=== PATIENT | female | born 1965 | race Caucasian/White ===

== ENCOUNTER 2021-04-09 10:26 | Emergency (ER) | payer BC, MEDICARE, OTHER ==
[~2021-04-09] VITALS: Ht 162.5 cm; Wt 88.5 kg
[2021-04-09] MEDS ORDERED: NS IV 1000 ML 1,000 ML ONE (11:41)
[2021-04-09] MEDS ORDERED: ACETAMINOPHEN 500 MG TAB (TYLENOL) ONE (11:41)
[2021-04-09 11:47] LABS: BASOPHILS % (AUTO) 0 % (0-10); EOSINOPHILS # (AUTO) 0.1 10^3/uL (0.0-0.3); EOSINOPHILS % (AUTO) 2 % (0-10); HEMATOCRIT 47 % (35-52); HEMOGLOBIN 14.7 g/dL (11.5-16.0); LYMPHOCYTES % (AUTO) 15 % (12-44); MEAN CORPUSCULAR HEMOGLOBIN 29 pg (25-34); MEAN CORPUSCULAR HGB CONC 31 g/dL (32-36); MEAN CORPUSCULAR VOLUME 94 fL (80-99); MEAN PLATELET VOLUME 9.7 fL (9.0-12.2); MONOCYTES # (AUTO) 0.6 10^3/uL (0.0-1.0); MONOCYTES % (AUTO) 8 % (0-12); NEUTROPHILS # (AUTO) 5.2 10^3/uL (1.8-7.8); NEUTROPHILS % (AUTO) 75 % (42-75); PLATELET COUNT 278 10^3/uL (130-400); WHITE BLOOD COUNT 6.9 10^3/uL (4.3-11.0)
--- NOTE | 2021-04-09 11:58 | ED Cough/URI ---
General Chief Complaint: COVID19 Suspect/Confirmed Stated Complaint: FEVER,COUGH,SOB Nursing Triage Note: PT AMB TO [facility] 9 WITH COMPLAINT OF COUGH, SOA, SINUS DRAINAGE. STATES SYMPTOMS STARTED A WEEK AGO. STATES SYMPTOMS WORSENED 2 DAYS AGO. History of Present Illness Date Seen by Provider: Apr 09, 2021 Time Seen by Provider: 11:00 Initial Comments 55-year-old female presents for sinus congestion, productive cough with green to yellow sputum, fevers and shortness of air. She has been here visiting from [place] for the holidays. 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 She wears oxygen at 2 L per nasal cannula at night. She is not vaccinated for Covid or influenza, she has not had COVID previously. Her last test was approximately 6 months ago when she was negative. Other household members are sick with similar symptoms. She mainly complains of Sinus pressure and headache. She called her PCP and was recommended to send here, she has required SoluMedrol and Rocephin in the past. 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 She had Ibuprofen 600 mg this am. She left her Nebulizer machine in [place]. Timing/Duration: getting worse Severity/Quality: moderate, productive cough Associated Symptoms: cough, facial pain, fever/chills, muscle aches, nasal congestion, nasal drainage, shortness of breath, sinus infection, wheezing Allergies and Home Medications Allergies Coded Allergies: Penicillins (Verified Allergy, Unknown, 04/09/21) propoxyphene (Verified Allergy, Unknown, 04/09/21) Patient Home Medication List Home Medication List Reviewed: Yes Cefdinir (Cefdinir) 300 Mg Capsule, 300 MG PO BID Prescribed by: WAGNER SHULTZ on 04/09/211443 Fluconazole (Diflucan) 150 Mg Tablet, 150 MG PO ONCE Prescribed by: WAGNER SHULTZ on 04/09/21 144 Ondansetron (Ondansetron Odt) 4 Mg Tab.rapdis, 4 MG PO Q6H PRN for NAUSEA/VOMITING Prescribed by: WAGNER SHULTZ on 04/09/211443 Prednisone (Prednisone) 20 Mg Tab, 40 MG PO DAILY Prescribed by: WAGNER SHULTZ on 04/09/21 144 Review of Systems Review of Systems Constitutional: see HPI, chills, fever, malaise, weakness EENTM: see HPI, nose congestion Respiratory: see HPI, cough, dyspnea on exertion, phlegm, short of breath Cardiovascular: no symptoms reported, see HPI Gastrointestinal: no symptoms reported, see HPI Genitourinary: no symptoms reported, see HPI All Other Systems Reviewed Negative Unless Noted: Yes Past Cmjauld-Kgycdd-Qhwknq Hx Patient Social History Tobacco Use?: Yes Tobacco type used: Cigarettes Smoking Status: Current Everyday Smoker Use of E-Cig and/or Vaping dev: No Substance use?: No Additional substance use comme: DELTA 8 GUMMIES Alcohol Use?: No Pt feels they are or have been: No Immunizations Up To Date Influenza Vaccine Up-to-Date: No; Not Current Past Medical History Surgery/Hospitalization HX: COPD Cancer: Yes Esophageal (Blackmon's) Family Medical History Reviewed and Corrections made Physical Exam Vital Signs - First Documented 04/09/21 10:50 Temp 36.4 Pulse 107 Resp 20 B/P (MAP) 158/81 (106) Pulse Ox 93 O2 Delivery Room Air O2 Flow Rate 2.00 Capillary Refill : Less Than 3 Seconds Height: '" Weight: lbs. oz. kg; 33.00 BMI Method: General Appearance: mild distress HEENT: PERRL/EOMI, normal ENT inspection, TMs normal; No pharyngeal erythema, No tonsillar exudate; other (Thick postnasal drainage, frontal and maxillary sinus tenderness.) Neck: non-tender, full range of motion, supple, normal inspection Respiratory: chest non-tender, lungs clear, normal breath sounds Cardiovascular: normal peripheral pulses, regular rate, rhythm Gastrointestinal: normal bowel sounds, non tender, soft Extremities: normal range of motion, non-tender, normal inspection, normal capillary refill Neurologic/Psychiatric: no motor/sensory deficits, alert, normal mood/affect, oriented x 3 Skin: rash (to arms and legs, present 4-5 days. Thought she may have gotten flea bites while staying at her sons and she is allergic to fleas. 4-5 maculo- papular rash with mild puritus ) Progress/Results/Core Measures Suspected Sepsis SIRS Temperature: Pulse: 107 Respiratory Rate: 20 Laboratory Tests 04/09/21 11:40: White Blood Count 6.9 Blood Pressure 158 /81 Mean: 106 Laboratory Tests 04/09/21 11:40: Creatinine 0.72, INR Comment 0.9, Platelet Count 278, Total Bilirubin 0.2 Results/Orders Lab Results Laboratory Tests Test 04/09/21 10:55 04/09/21 11:30 04/09/21 11:40 Range/Units Influenza Type A Antigen POSITIVE H NEGATIVE Influenza Type B Antigen NEGATIVE NEGATIVE SARS-CoV-2 RNA (RT-PCR) Negative Negative Urine Color YELLOW Urine Clarity SL CLOUDY Urine pH 6.0 5-9 Urine Specific [place] >=1.030 1.016-1.022 Urine Protein 1+ H NEGATIVE Urine Glucose (UA) NEGATIVE NEGATIVE Urine Ketones NEGATIVE NEGATIVE Urine Nitrite NEGATIVE NEGATIVE Urine Bilirubin NEGATIVE NEGATIVE Urine Urobilinogen 0.2 < = 1.0 MG/DL Urine Leukocyte Esterase NEGATIVE NEGATIVE Urine RBC (Auto) 2+ H NEGATIVE Urine RBC 5-10 H /HPF Urine WBC NONE /HPF Urine Squamous Epithelial Cells 5-10 /HPF Urine Crystals NONE /LPF Urine Bacteria FEW H /HPF Urine Casts PRESENT /LPF Urine Hyaline Casts 0-2 H /LPF Urine Mucus MODERATE H /LPF Urine Culture Indicated YES White Blood Count 6.9 4.3-11.0 10^3/uL Red Blood Count 5.05 3.80-5.11 10^6/uL Hemoglobin 14.7 11.5-16.0 g/dL Hematocrit 47 35-52 % Mean Corpuscular Volume 94 80-99 fL Mean Corpuscular Hemoglobin 29 25-34 pg Mean Corpuscular Hemoglobin Concent 31 L 32-36 g/dL Red Cell Distribution Width 15.0 H 10.0-14.5 % Platelet Count 278 130-400 10^3/uL Mean Platelet Volume 9.7 9.0-12.2 fL Immature Granulocyte % (Auto) 0 % Neutrophils (%) (Auto) 75 42-75 % Lymphocytes (%) (Auto) 15 12-44 % Monocytes (%) (Auto) 8 0-12 % Eosinophils (%) (Auto) 2 0-10 % Basophils (%) (Auto) 0 0-10 % Neutrophils # (Auto) 5.2 1.8-7.8 10^3/uL Lymphocytes # (Auto) 1.0 1.0-4.0 10^3/uL Monocytes # (Auto) 0.6 0.0-1.0 10^3/uL Eosinophils # (Auto) 0.1 0.0-0.3 10^3/uL Basophils # (Auto) 0.0 0.0-0.1 10^3/uL Immature Granulocyte # (Auto) 0.0 0.0-0.1 10^3/uL Prothrombin Time 12.6 12.2-14.7 SEC INR Comment 0.9 0.8-1.4 Activated Partial Thromboplast Time 28 24-35 SEC D-Dimer 1.20 H 0.00-0.49 UG/ML Sodium Level 144 135-145 MMOL/L Potassium Level 3.5 L 3.6-5.0 MMOL/L Chloride Level 108 H 98-107 MMOL/L Carbon Dioxide Level 28 21-32 MMOL/L Anion Gap 8 5-14 MMOL/L Blood Urea Nitrogen 6 L 7-18 MG/DL Creatinine 0.72 0.60-1.30 MG/DL Estimat Glomerular Filtration Rate 83 BUN/Creatinine Ratio 8 Glucose Level 94 70-105 MG/DL Calcium Level 8.4 L 8.5-10.1 MG/DL Corrected Calcium 8.7 8.5-10.1 MG/DL Total Bilirubin 0.2 0.1-1.0 MG/DL Aspartate Amino Transf (AST/SGOT) 15 5-34 U/L Alanine Aminotransferase (ALT/SGPT) 15 0-55 U/L Alkaline Phosphatase 68 40-136 U/L Lactate Dehydrogenase 200 125-220 U/L C-Reactive Protein High Sensitivity 1.50 H 0.00-0.50 MG/DL Total Protein 7.0 6.4-8.2 GM/DL Albumin 3.6 3.2-4.5 GM/DL Procalcitonin 0.05 <0.10 NG/ML My Orders Orders - WAGNER SHULTZ Cbc With Automated Diff (04/09/21 11:13) Comprehensive Metabolic Panel (04/09/21 11:13) Fibrin Degradation Products (04/09/21 11:13) Procalcitonin (Pct) (04/09/21 11:13) Hs C Reactive Protein (04/09/21 11:13) LDH (04/09/21 11:13) Chest 1 View, Ap/Pa Only (04/09/21 11:13) Acetaminophen Tablet (Tylenol Tablet) (04/09/21 11:41) Ns Iv 1000 Ml (Sodium Chloride 0.9%) (04/09/21 11:41) Covid 19 Inhouse Test (04/09/21 11:51) Influenza A & B Antigens (04/09/21 11:51) Sputum Culture (04/09/21 11:51) Ua Culture If Indicated (04/09/21 12:03) Ceftriaxone 1 Gm Pre-Mix (Rocephin 1 Gm (04/09/21 12:45) Methylprednisolone Acetate Inj (Depo-Med (04/09/21 12:38) Protime With Inr (04/09/21 12:41) Partial Thromboplastin Time (04/09/21 12:41) Urine Culture (04/09/21 11:30) Ondansetron Injection (Zofran Injectio (04/09/21 12:48) Coronavirus Sars-Cov-2 So 2019 (04/09/21 12:51) Ct Angio Chest W (04/09/21 13:03) Iohexol Injection (Omnipaque 350 Mg/Ml 1 (04/09/21 13:15) Received Contrast (Hold Metformin- Contr (04/09/21 13:15) Ns (Ivpb) (Sodium Chloride 0.9% Ivpb Bag (04/09/21 13:15) Tramadol Tablet (Ultram Tablet) (04/09/21 14:00) Tramadol Tablet (Ultram Tablet) (04/09/21 13:47) Promethazine Injection (Phenergan Injec (04/09/21 14:11) Tramadol Tablet (Ultram Tablet) (04/09/21 14:47) Medications Given in ED Current Medications Medications Dose Ordered Sig/Saundra Route Start Time Stop Time Status Last Admin Dose Admin Acetaminophen 500 mg STK-MED ONCE .ROUTE 04/09/21 11:41 04/09/21 11:44 DC 04/09/21 11:43 500 MG Ceftriaxone Sodium/Dextrose 50 ml @ 100 mls/hr ONCE ONCE IV 04/09/21 12:45 04/09/21 13:14 DC 04/09/21 13:49 100 MLS/HR Iohexol 100 ml ONCE ONCE IV 04/09/21 13:15 04/09/21 13:16 DC 04/09/21 13:25 75 ML Sodium Chloride 100 ml ONCE ONCE IV 04/09/21 13:15 04/09/21 13:16 DC 04/09/21 13:25 80 ML Sodium Chloride 1,000 ml @ ud STK-MED ONCE .ROUTE 04/09/21 11:41 04/09/21 11:44 DC 04/09/21 11:43 1,000 MLS/HR Tramadol HCl 50 mg ONCE ONCE PO 04/09/21 14:00 04/09/21 14:01 DC 04/09/21 13:49 50 MG Vital Signs/I&O 04/09/21 04/09/21 04/09/21 10:50 10:50 15:14 Temp 36.4 Pulse 107 97 Resp 20 22 B/P (MAP) 158/81 (106) 142/65 Pulse Ox 93 97 O2 Delivery Room Air Nasal Cannula O2 Flow Rate 2.00 Capillary Refill : Less Than 3 Seconds Blood Pressure Mean: 106 Progress Note : Time: 11:00 Progress Note Patient seen and evaluated, will obtain labs, chest x-ray, normal saline 1 L, maintain SaO2 at 90% or greater with O2 per nasal cannula. Tylenol 1,000 mg for pain. 1200 Flu A positive, COVID PUI. D-dime elevated, will obtain CT angio of chest for PE. 1300 Neg for PE. Patient complaining of pain, Tramadol 50 mg PO. 1320 patient vomiting from sinus drainage after taking Tramadol, will give Phenergan 12.5 mg IV. 1400 patient reports symptoms are improving however she would like the tramadol as she vomited immediately after taking it. 1430 We will repeat that and plan for discharge to home, she does report to be improving in her symptoms. Stressed the importance of pain management and careful follow-up. Since she does not have a primary care provider in this area, and emphasized the importance of getting established with someone at [facility]. Discharge instructions and return precautions were reviewed with her and her . She will remain a COVID PUI, since a send out is required. Diagnostic Imaging Diagonstic Imaging: Xray Plain Films/CT/US/NM/MRI: chest Comments NAME: NORMA NOVA MED REC#: [id number] PT STATUS: REG ER : 1965 PHYSICIAN: WAGNER SHULTZP ADMIT DATE: 04/09/21/ER Signed Date of Exam:04/09/21 CHEST 1 VIEW, AP/PA ONLY INDICATION: Hypoxemia. EXAMINATION: Portable chest at 11:54 a.m. FINDINGS: Heart size and pulmonary vascularity are normal. Lungs are clear. There are no effusions or pneumothoraces. IMPRESSION: Negative chest. Dictated by: Dictated on workstation # [id number] Dict: 04/09/21 1202 Trans: 04/09/21 1312 AS6 [id number] Interpreted by: ANTONIETTA GUERRERO MD Electronically signed by: ANTONIETTA GUERRERO MD 04/09/21 1312 Reviewed: Reviewed by Me Diagonstic Imaging: CT Plain Films/CT/US/NM/MRI: chest Comments NAME: NORMA NOVA [facility] REC#: [id number] PT STATUS: REG ER : 1965 PHYSICIAN: WAGNER SHULTZ ADMIT DATE: 04/09/21/ER Draft Date of Exam:04/09/21 CT ANGIO CHEST W PROCEDURE: CT angiography of the chest with contrast. TECHNIQUE: Multiple contiguous axial images were obtained through the chest after uneventful bolus administration of intravenous contrast. 3D reconstructed CTA MIP acquisitions were also performed. Auto Exposure Controls were utilized during the CT exam to meet ALARA standards for radiation dose reduction. INDICATION: Cough. Fever. Shortness of air. Influenza positive patient. COMPARISON: None FINDINGS: There is no intraluminal filling defect within the pulmonary arteries to the subsegmental division. Evaluation of subsegmental branches of the right upper lobe is suboptimal due to metallic beam hardening artifact from contrast bolus within the SVC. There is also mild motion artifact. There is minimal scattered calcified aortic atherosclerosis. By NASCET criteria, there is no significant aortic stenosis. Additionally, there is no evidence of dissection or aneurysm. Heart size is within normal limits. There is no large pericardial effusion. No pathologically enlarged or morphologically abnormal adenopathy is seen within the mediastinum, bhavya, nor axilla. Evaluation of the lung serra is mildly degraded secondary to motion artifact. Lungs however appear to be clear. There is no focal consolidation, large effusion, no pneumothorax. No suspicious pulmonary nodules or masses are identified. Osseous structures show no acute abnormalities. No lytic or blastic bony lesions are seen. Included portions of the upper abdomen are unremarkable as well. IMPRESSION: 1. No acute pulmonary embolus to the segmental division of pulmonary arteries. 2. No other acute cardiopulmonary process. Dictated on workstation # [id number] Dict: 04/09/21 1333 Trans: 04/09/21 1338 CV [id number] Interpreted by: SAMANTHA FARRIS MD Electronically signed by: Reviewed: Reviewed by Me Departure Impression Primary Impression: Cough Additional Impressions: Upper respiratory infection Qualified Codes: J06.9 - Acute upper respiratory infection, unspecified Sinusitis Qualified Codes: J01.11 - Acute recurrent frontal sinusitis Influenza A UTI (urinary tract infection) Qualified Codes: N30.01 - Acute cystitis with hematuria Disposition: HOME, SELF-CARE Condition: Stable Departure-Patient Inst. Decision time for Depature: 14:30 Referrals: [facility]/ELISE PACHECO,LOCAL PHYSICIAN (PCP) Primary Care Physician Patient Instructions: Flu, Adult (DC), Sinusitis, Adult (DC), Urinary Tract Infection, Adult (DC) Add. Discharge Instructions: Increase fluid intake, 16 ounces every 2 hours while awake. Take antibiotics, steroids, and diflucan as prescribed. Use your oxygen as needed to keep your oxygen saturation levels above 92%. There is durable medical equipment behind [address] that you can go to obtain oxygen supplies, you will need to call your primary care provider to receive orders. Establish care with [facility]. Use Zofran every 6-8 hours as needed for nausea and vomiting. Take an immune multivitamin that has vitamin C, D and zinc. Make sure you are ambulating for 5 minutes every hour while awake, and taking deep breaths. Take aspirin 81 mg once daily. Return to the emergency department for new, urgent healthcare needs. For non- emergent healthcare [facility] has Walk-In care. All discharge instructions reviewed with patient and/or family. Voiced understanding. Scripts Prednisone (Prednisone) 20 Mg Tab 40 MG PO DAILY, #6 TAB 0 Refills Prov: WAGNER SHULTZ 04/09/21 Ondansetron (Ondansetron Odt) 4 Mg Tab.rapdis 4 MG PO Q6H PRN for NAUSEA/VOMITING, #12 TAB 0 Refills Prov: WAGNER SHULTZ ENGRAVER LETTER 04/09/21 Cefdinir (Cefdinir) 300 Mg Capsule 300 MG PO BID, #14 CAP 0 Refills Prov: WAGNER SHULTZP 04/09/21 Fluconazole (Diflucan) 150 Mg Tablet 150 MG PO ONCE, #3 TAB 0 Refills 1 every 3 days Prov: AWGNER SHULTZ 04/09/21 WAGNER SHULTZ Apr 09, 2021 11:58
[2021-04-09 12:02] LABS: ALBUMIN 3.6 GM/DL (3.2-4.5); POTASSIUM 3.5 MMOL/L (3.6-5.0)
[2021-04-09 12:04] LABS: CALCIUM 8.4 MG/DL (8.5-10.1)
--- NOTE | 2021-04-09 12:04 | Diagnostic Imaging Report ---
INDICATION: Hypoxemia. EXAMINATION: Portable chest at 11:54 a.m. FINDINGS: Heart size and pulmonary vascularity are normal. Lungs are clear. There are no effusions or pneumothoraces. IMPRESSION: Negative chest. Dictated by: Dictated on workstation # [id number]
[2021-04-09 12:07] LABS: BILIRUBIN,TOTAL 0.2 MG/DL (0.1-1.0)
[2021-04-09 12:09] LABS: CREATININE SERUM 0.72 MG/DL (0.60-1.30)
[2021-04-09 12:23] LABS: BILIRUBIN,URINE NEGATIVE (NEGATIVE); CLARITY,URINE SL CLOUDY; COLOR,URINE YELLOW; GLUCOSE, URINE (UA) NEGATIVE (NEGATIVE); KETONES,URINE NEGATIVE (NEGATIVE); LEUKOCYTE ESTERASE ,URINE NEGATIVE (NEGATIVE); NITRITE,URINE NEGATIVE (NEGATIVE); PROTEIN,URINE 1+ (NEGATIVE)
[2021-04-09] MEDS ORDERED: methylPREDNISolone 80 MG/ML (DEPO MEDROL) VIAL IM STA (12:38)
[2021-04-09 12:43] LABS: BACTERIA,URINE FEW /HPF; HYALINE CASTS, URINE 0-2 /LPF
[2021-04-09] MEDS ORDERED: cefTRIAXone 1 GM PRE-MIX 50 ML IV ONE (12:45)
[2021-04-09] MEDS ORDERED: ONDANSETRON 4 MG/2 ML (SDV) Z0FRAN IVP STA (12:48)
[2021-04-09] MEDS ORDERED: NS 100 ML (IVPB) BAG IV ONE (13:15)
[2021-04-09] MEDS ORDERED: HOLD METFORMIN - RECEIVED CONTRAST 20 ML VIAL IV SCH (13:15)
[2021-04-09] MEDS ORDERED: IOHEXOL 350 MG/ML 100 ML (OMNIPAQUE 350) VIAL IV ONE (13:15)
[2021-04-09 13:36] LABS: INR 0.9 (0.8-1.4); PROTHROMBIN TIME PATIENT 12.6 SEC (12.2-14.7)
--- NOTE | 2021-04-09 13:39 | Diagnostic Imaging Report ---
PROCEDURE: CT angiography of the chest with contrast. TECHNIQUE: Multiple contiguous axial images were obtained through the chest after uneventful bolus administration of intravenous contrast. 3D reconstructed CTA MIP acquisitions were also performed. Auto Exposure Controls were utilized during the CT exam to meet ALARA standards for radiation dose reduction. INDICATION: Cough. Fever. Shortness of air. Influenza positive patient. COMPARISON: None FINDINGS: There is no intraluminal filling defect within the pulmonary arteries to the subsegmental division. Evaluation of subsegmental branches of the right upper lobe is suboptimal due to metallic beam hardening artifact from contrast bolus within the SVC. There is also mild motion artifact. There is minimal scattered calcified aortic atherosclerosis. By NASCET criteria, there is no significant aortic stenosis. Additionally, there is no evidence of dissection or aneurysm. Heart size is within normal limits. There is no large pericardial effusion. No pathologically enlarged or morphologically abnormal adenopathy is seen within the mediastinum, bhavya, nor axilla. Evaluation of the lung serra is mildly degraded secondary to motion artifact. Lungs however appear to be clear. There is no focal consolidation, large effusion, no pneumothorax. No suspicious pulmonary nodules or masses are identified. Osseous structures show no acute abnormalities. No lytic or blastic bony lesions are seen. Included portions of the upper abdomen are unremarkable as well. IMPRESSION: 1. No acute pulmonary embolus to the segmental division of pulmonary arteries. 2. No other acute cardiopulmonary process. Dictated by: Dictated on workstation # [id number]
[2021-04-09] MEDS ORDERED: KETOROLAC 30 MG/ML VIAL IVP STA (14:08)
[2021-04-09] MEDS ORDERED: PROMETHAZINE INJ 25 MG/ML (PHENERGAN) AMP IVP STA (14:11)
[2021-04-09] MEDS ORDERED: PRD20T PO (14:44)
[2021-04-09] MEDS ORDERED: CEFD300C3 PO (14:44)
[2021-04-09] MEDS ORDERED: FLUC150T PO (14:44)
[2021-04-09] MEDS ORDERED: ONDA4TAB11 PO (14:44)
[2021-04-09 15:14] VITALS: BP 142/65
== END 2021-04-09 15:16 | disposition home or self-care (01) ==
LOC: EDUNIT# 10:26 → ER 10:31
DX: J06.9 Acute upper respiratory infection, unspecified (principal); J32.9 Chronic sinusitis, unspecified; N39.0 Urinary tract infection, site not specified; J44.9 Chronic obstructive pulmonary disease, unspecified; F17.210 Nicotine dependence, cigarettes, uncomplicated; Z20.822 Contact with and (suspected) exposure to COVID-19
CPT/HCPCS: 36415; 71045; 71275; 80053; 81000; 83615; 84145; 85025; 85379; 85610; 85730; 86141; 87070; 87088; 87205; 87635; 87636; 87804

== ENCOUNTER 2022-04-27 10:07 | Emergency (ER) | payer BC, MEDICARE ==
[~2022-04-27] VITALS: Ht 162.6 cm; Wt 97.5 kg
[~2022-04-27 10:07] MED LIST: CEFD300C3 PO; FLUC150T PO; ONDA4TAB11 PO; PRD20T PO
[2022-04-27] MEDS ORDERED: FLUC200T PO (10:37)
[2022-04-27] MEDS ORDERED: AZIT250T12 PO (10:37)
[2022-04-27] MEDS ORDERED: ALBU8.5H6 INH (10:37)
--- NOTE | 2022-04-27 10:37 | ED Cough/URI ---
General Chief Complaint: Cough/Cold/Flu Symptoms Stated Complaint: SOB | SINUS INFECTION Source: patient Exam Limitations: no limitations History of Present Illness Date Seen by Provider: Apr 27, 2022 Time Seen by Provider: 10:26 Initial Comments Patient is a 56-year-old female history of COPD who presents to the emergency room with a chief complaint of headache associated with deep wet cough. Cough is productive of clear to yellowish sputum with occasional flecks of blood. She has had symptoms over the course of the last week since Friday. She denies fevers or chills. She has nasal congestion. She continues to smoke. She is visiting here from [place]. She complains of having elevated blood pressure, ran out of her amlodipine 3 or 4 days ago. No complaints with bowel or bladder. She did have a skin rash, multiple wounds last weekend that she has been placing an antibiotic ointment on that are healing. All other review of systems reviewed and negative except as stated. Timing/Duration: week Severity/Quality: moderate, productive cough Prior Episodes/Possible Cause: frequent episodes Modifying Factors: Improves With Albuterol Inhaler Associated Symptoms: cough, headache, nasal congestion, nasal drainage, shortness of breath, sore throat Allergies and Home Medications Allergies Coded Allergies: Penicillins (Verified Allergy, Unknown, 04/09/21) propoxyphene (Verified Allergy, Unknown, 04/09/21) Patient Home Medication List Home Medication List Reviewed: Yes Albuterol Sulfate (Ventolin Hfa) 90 Mcg Hfa.aer.ad, 2 PUFF INH Q6H PRN for SHORTNESS OF BREATH Prescribed by: DAVID JACOBSEN on 04/27/22 1037 Amlodipine Besylate (Amlodipine Besylate) 5 Mg Tablet, 5 MG PO DAILY Prescribed by: DAVID JACOBSEN on 04/27/22 1045 Azithromycin (Azithromycin) 250 Mg Tablet, 250 MG PO UD Prescribed by: DAVID JACOBSEN on 04/27/22 1037 Cefdinir (Cefdinir) 300 Mg Capsule, 300 MG PO BID Prescribed by: WAGNER SHULTZ on 04/09/21 1444 Fluconazole (Diflucan) 150 Mg Tablet, 150 MG PO ONCE Prescribed by: WAGNER SHULTZ on 04/09/21 1444 Fluconazole (Diflucan) 200 Mg Tablet, 200 MG PO ONCE Prescribed by: DAVID JACOBSEN on 04/27/22 1037 Nystatin (Nystatin) 100,000 Unit/Ml Oral.susp, 6 ML PO QID Prescribed by: DAVID JACOBSEN on 04/27/22 1108 Ondansetron (Ondansetron Odt) 4 Mg Tab.rapdis, 4 MG PO Q6H PRN for NAUSEA/VOMITING Prescribed by: WAGNER SHULTZ on 04/09/21 1444 Prednisone (Prednisone) 20 Mg Tab, 40 MG PO DAILY Prescribed by: WAGNER SHULTZ on 04/09/21 1444 Review of Systems Review of Systems Constitutional: see HPI EENTM: nose congestion Respiratory: cough, phlegm, short of breath Cardiovascular: no symptoms reported Gastrointestinal: no symptoms reported Genitourinary: no symptoms reported Musculoskeletal: no symptoms reported Skin: no symptoms reported Psychiatric/Neurological: Headache Past Bzqjfia-Oetwym-Slvdxo Hx Patient Social History Tobacco Use?: Yes Tobacco type used: Cigarettes Smoking Status: Heavy Tobacco Smoker Smokeless Tobacco Frequency: Never a User Use of E-Cig and/or Vaping dev: No Use of E-Cig and/or Vaping Cleve: Never a User Substance use?: No Alcohol Use?: No Pt feels they are or have been: No Past Medical History Surgery/Hospitalization HX: COPD Cancer: Yes Esophageal Physical Exam Vital Signs - First Documented 04/27/22 04/27/22 10:15 11:07 Temp 36.2 Pulse 107 Resp 17 B/P (MAP) 172/105 (127) Pulse Ox 95 O2 Delivery Room Air Capillary Refill : Height: '" Weight: lbs. oz. kg; 33.00 BMI Method: General Appearance: WD/WN, no apparent distress Eyes: Bilateral Eye Normal Inspection, Bilateral Eye PERRL, Bilateral Eye EOMI HEENT: PERRL/EOMI, TM abnormal (L) (effusion), other (oral thrush on tongue) Neck: full range of motion, normal inspection Respiratory: lungs clear, normal breath sounds, no respiratory distress, no accessory muscle use, other (RA 93%) Cardiovascular: regular rate, rhythm Extremities: normal range of motion Neurologic/Psychiatric: alert, normal mood/affect, oriented x 3 Skin: normal color, warm/dry Progress/Results/Core Measures Suspected Sepsis SIRS Temperature: Pulse: Respiratory Rate: Blood Pressure / Mean: Results/Orders My Orders Orders - DAVID JACOBSEN MD Chest Pa/Lat (2 View) (04/27/22 10:32) Vital Signs/I&O 04/27/22 04/27/22 04/27/22 10:15 10:15 11:07 Temp 36.2 36.5 Pulse 107 81 Resp 17 16 B/P (MAP) 172/105 (127) 161/88 Pulse Ox 95 O2 Delivery Room Air Room Air Room Air Capillary Refill : Progress Note : Time: 11:14 Progress Note Patient seen and evaluated by me, 56-year-old with a history of hypertension and COPD who continues to smoke. Evaluation today includes physical exam, two-view chest x-ray. Patient is notably in no acute distress, stable vital signs with him with oxygen saturations at 93 to 94%. She demonstrates no increased work of breathing or respiratory distress. She is not wheezing. She has had symptoms for a week. Denies fever. Patient's chest x-ray is unremarkable for any acute findings, she does have changes consistent with COPD. She has no evidence of pneumonia either on exam or on chest x-ray. No clinical findings of sepsis. Laboratory evaluation considered but not supported by history and physical examination. She is tolerating oral intake, no diarrhea or vomiting. She ini dong is asking for a "shot of Rocephin and steroids". I discussed with her indications for IM/IV antibiotics as well as steroids. She is not wheezing or exhibiting signs of a acute COPD exacerbation. She also has findings on physical examination concerning for oral thrush and has used oral nystatin in the past with success. She also states that her doctor gives her Diflucan. We will be sending her home with azithromycin, albuterol inhaler, a refill of her blood pressure medications as she is out, both oral nystatin troches as well as Diflucan. Patient is comfortable with plan of care, all questions are sought and answered. Patient is stable for discharge. Diagnostic Imaging Diagonstic Imaging: Xray Plain Films/CT/US/NM/MRI: chest Comments 2 view chest x-rayinterpreted by mefindings consistent with COPD, no effusions, consolidative infiltrates or other acute pathology is noted Counseling-Symptomatic: 3-10 Minutes Follow-up with PCP to: Discuss Further Options Departure Impression Primary Impression: Acute bronchitis with COPD Additional Impression: High blood pressure Qualified Codes: I10 - Essential (primary) hypertension Disposition: HOME, SELF-CARE Condition: Stable Departure-Patient Inst. Decision time for Depature: 11:00 Referrals: [facility]/ELISE PACHECO,LOCAL PHYSICIAN (PCP) Primary Care Physician Patient Instructions: Acute Bronchitis, Adult (DC), Quitting Smoking for Older Adults Add. Discharge Instructions: Continue to use your inhalers as prescribed/needed. Drink plenty of fluids to stay well-hydrated. I have sent a prescription for antibiotics to [facility] pharmacy as well as prescriptions for Diflucan, your inhaler and a refill of your blood pressure medications. If you develop fever with worsening cough, chest pain or any other emergent, concerning symptoms please return to the emergency room for reevaluation. I have put contact information for [facility] on your discharge paperwork for when you move back to the area. Scripts Nystatin (Nystatin) 100,000 Unit/Ml Oral.susp 6 ML PO QID for 7 Days, #200 ML Prov: DAVID JACOBSEN MD 04/27/22 Amlodipine Besylate (Amlodipine Besylate) 5 Mg Tablet 5 MG PO DAILY for 30 Days, #30 TAB Prov: DAVID JACOBSEN MD 04/27/22 Fluconazole (Diflucan) 200 Mg Tablet 200 MG PO ONCE, #4 TAB take 1 a week for 4 weeks Prov: DAVID JACOBSEN MD 04/27/22 Azithromycin (Azithromycin) 250 Mg Tablet 250 MG PO UD, #6 TAB TAKE 2 TABLETS ON DAY ONE THEN TAKE 1 TABLET DAILY FOR FOUR MORE DAYS Prov: DAVID JACOBSEN MD 04/27/22 Albuterol Sulfate (Ventolin Hfa) 90 Mcg Hfa.aer.ad 2 PUFF INH Q6H PRN for SHORTNESS OF BREATH, #1 UNIT 1 PUFF = 90 MCG Prov: DAVID JACOBSEN MD 04/27/22 DAVID JACOBSEN MD Apr 27, 2022 10:37
[2022-04-27] MEDS ORDERED: AMLO-250 PO (10:45)
[2022-04-27 11:07] VITALS: BP 161/88
[2022-04-27] MEDS ORDERED: NYST1000 PO (11:08)
--- NOTE | 2022-04-27 11:10 | Diagnostic Imaging Report ---
INDICATION: Cough and dyspnea. COMPARISON: 04/09/2021. DISCUSSION: Two views of the chest were obtained. Normal heart size. No consolidation, pleural fluid, or pneumothorax. No osseous abnormality. IMPRESSION: 1. Negative chest. Dictated by: Dictated on workstation # [id number]
== END 2022-04-27 11:08 | disposition home or self-care (01) ==
LOC: EDUNIT# 10:07 → ER 10:10
DX: J20.9 Acute bronchitis, unspecified (principal); J44.0 Chronic obstructive pulmonary disease with (acute) lower respiratory infection; I10 Essential (primary) hypertension; F17.210 Nicotine dependence, cigarettes, uncomplicated; Z88.0 Allergy status to penicillin; Z28.310 Unvaccinated for COVID-19
CPT/HCPCS: 71046